=== PATIENT | female | born 1980 | race Caucasian/White ===

== ENCOUNTER 2016-10-15 18:33 | Emergency (ER) | payer OTHER ==
--- NOTE | 2016-10-15 19:51 | ER Document Report ---
HPI - HPI Patient complains to provider of: left breast pain Onset: Last week Onset/Duration: Persistent Quality of pain: Achy Pain Level: 3 Context: Patient complains of tenderness to left breast and palpable lumps to left breast. Patient denies any fever. Patient reports a family history of breast cancer to her aunt on her mother's side. Associated Symptoms: Other - Left breast tenderness with lumps Similar symptoms previously: No Recently seen / treated by doctor: No - ROS ROS below otherwise negative: Yes Systems Reviewed and Negative: Yes All other systems reviewed and negative - CONSTITUTIONAL Constitutional: DENIES: Fever, Chills - CARDIOVASCULAR Cardiovascular: REPORTS: Chest pain - Left breast tenderness - RESPIRATORY Respiratory: DENIES: Coughing - REPRODUCTIVE Reproductive: DENIES: : - DERM Skin Color: Normal, [place] Skin Problems: None Past Medical History - General Information source: Patient - Social History Smoking Status: Never Smoker Frequency of alcohol use: None Drug Abuse: None Occupation: chemist food Family History: Reviewed & Not Pertinent - Medical History Medical History: Negative Pulmonary Medical History: Reports: Hx Asthma Neurological Medical History: Reports: Hx Migraine Renal/ Medical History: Denies: Hx Peritoneal Dialysis Past Surgical History: Reports: Hx Tubal Ligation - Immunizations Immunizations up to date: Yes Hx Diphtheria, Pertussis, Tetanus Vaccination: Yes - <5 years Vertical Provider Document - CONSTITUTIONAL Agree With Documented VS: Yes Exam Limitations: No Limitations General Appearance: WD/WN, No Apparent Distress - INFECTION CONTROL TRAVEL OUTSIDE OF THE [place] IN LAST 30 DAYS: No - HEENT HEENT: Atraumatic, Normocephalic - NECK Neck: Normal Inspection, Supple - RESPIRATORY Respiratory: Breath Sounds Normal, No Respiratory Distress. negative: Chest Non -Tender - Left breast tenderness under her left periorbital edema extending out about 3 cm in all directions Notes: Patient with fibrocystic breast tissue to left breast, multiple palpable nodules to left breast, normal skin color, temperature and contour to left breast. No nipple inversion or drainage - CARDIOVASCULAR Cardiovascular: Regular Rate, Regular Rhythm, No Murmur - MUSCULOSKELETAL/EXTREMETIES Musculoskeletal/Extremeties: MAEW, FROM - NEURO Level of Consciousness: Awake, Alert, Appropriate Motor/Sensory: No Motor Deficit - DERM Integumentary: Warm, Dry, No Rash Discharge - Discharge Clinical Impression: Breast lump in female Condition: Stable Disposition: HOME, SELF-CARE Instructions: Breast Lumps ([facility]), Anti-Inflammatory Medication ([facility]), Family Physicians / Practices Additional Instructions: Return immediately for any new or worsening symptoms Followup with your primary care provider, call tomorrow to make a followup appointment Avoid caffeinated beverages You need to get established with a primary doctor and have an outpatient mammogram to further evaluate breast lumps, call tomorrow to get established with a primary doctor. Prescriptions: Naproxen [Naprosyn 250 Nmg Tablet] 1 tab PO BID #14 tablet Forms: Return to Work
[2016-10-15 20:22] VITALS: BP 120/78
== END 2016-10-15 20:10 | disposition home or self-care (01) ==
LOC: ER 18:33
DX: N63 Unspecified lump in breast (principal); N64.4 Mastodynia; Z98.51 Tubal ligation status
CPT/HCPCS: 99283

== ENCOUNTER 2017-05-16 20:17 | Emergency (ER) | payer OTHER ==
--- NOTE | 2017-05-16 21:24 | ER Document Report ---
ED General - General Chief Complaint: Flu Symptoms Stated Complaint: FLU SYMPTOMS Time Seen by Provider: 05/16/17 21:23 Mode of Arrival: Ambulatory Information source: Patient Notes: 34-year-old with head congestion, postnasal drip, lightheadedness today intermittently, mild cough for a week. She was prescribed amoxicillin which she did not take today because she vomited twice. She has been in bed most of the day. No fever. No chest pain or shortness of breath. No abdominal pain. No dysuria. TRAVEL OUTSIDE OF THE [place] IN LAST 30 DAYS: No - Related Data Allergies/Adverse Reactions: No Known Drug Allergies Allergy (Verified 04/07/13 11:44) Past Medical History - General Information source: Patient - Social History Smoking Status: Never Smoker Frequency of alcohol use: None Drug Abuse: None Lives with: Spouse/Significant other Family History: Reviewed & Not Pertinent Patient has suicidal ideation: No Patient has homicidal ideation: No Pulmonary Medical History: Reports: Hx Asthma Neurological Medical History: Reports: Hx Migraine Renal/ Medical History: Denies: Hx Peritoneal Dialysis Past Surgical History: Reports: Hx Tubal Ligation - Immunizations Immunizations up to date: Yes Hx Diphtheria, Pertussis, Tetanus Vaccination: Yes - <5 years Review of Systems - Review of Systems Constitutional: See HPI EENT: See HPI Cardiovascular: No symptoms reported Respiratory: See HPI Gastrointestinal: No symptoms reported Genitourinary: No symptoms reported Female Genitourinary: No symptoms reported Musculoskeletal: No symptoms reported Skin: No symptoms reported Hematologic/Lymphatic: No symptoms reported Neurological/Psychological: No symptoms reported Physical Exam - Vital signs Vitals: Temp Pulse Resp BP Pulse Ox 98.3 F 91 16 112/69 100 05/16/17 20:31 05/16/17 20:31 05/16/17 20:31 05/16/17 20:31 05/16/17 20:31 Interpretation: Normal - General General appearance: Appears well, Alert In distress: None - HEENT Head: Normocephalic, Atraumatic Eyes: Normal Conjunctiva: Normal Pupils: PERRL Tympanic membrane: Normal Nasal: Swelling Mucous membranes: Normal Pharynx: Normal Neck: Supple. No: Lymphadenopathy - Respiratory Respiratory status: No respiratory distress Chest status: Nontender Breath sounds: Normal Chest palpation: Normal - Cardiovascular Rhythm: Regular Heart sounds: Normal auscultation Murmur: No - Abdominal Inspection: Normal Distension: No distension Bowel sounds: Normal Tenderness: Nontender. No: Tender Organomegaly: No organomegaly - Back Back: Normal, Nontender. No: CVA tenderness - Extremities General upper extremity: Normal inspection, Nontender, Normal color, Normal ROM , Normal temperature General lower extremity: Normal inspection, Nontender, Normal color, Normal ROM , Normal temperature, Normal weight bearing. No: Eileen's sign - Neurological Neuro grossly intact: Yes Cognition: Normal Orientation: AAOx4 [place] Coma Scale Eye Opening: Spontaneous [place] Coma Scale Verbal: Oriented [place] Coma Scale Motor: Obeys Commands [place] Coma Scale Total: 15 Speech: Normal Motor strength normal: LUE, RUE, LLE, RLE Sensory: Normal - Psychological Associated symptoms: Normal affect, Normal mood - Skin Skin Temperature: Warm Skin Moisture: Dry Skin Color: Normal Skin irregularity: negative: Rash Course - Re-evaluation Re-evalutation: 05/16/17 22:18 cough worse at night, post nasal drip. - Vital Signs Vital signs: Temp Pulse Resp BP Pulse Ox 98.4 F 84 18 111/64 97 05/16/17 21:53 05/16/17 21:53 05/16/17 21:53 05/16/17 21:53 05/16/17 21:53 Discharge - Discharge Clinical Impression: Sinusitis Qualifiers: Sinusitis location: unspecified location Chronicity: acute Recurrence: non- recurrent Qualified Code(s): J01.90 - Acute sinusitis, unspecified Condition: Good Disposition: HOME, SELF-CARE Instructions: Acetaminophen Additional Instructions: Take her amoxicillin that sure medical provider prescribed Saline nasal spray 4 times a day Coolmist humidifier Heat to your sinuses Return to the emergency room any concerns Zofran for nausea Please complete the patient satisfaction survey if you get one, and return it.. If you do not receive a survey, then you can go to the [facility] website, [email or web address] and place your comments about your very good care. Thank you very much. It was a pleasure being your medical provider today. Prescriptions: Benzonatate [Tessalon Perles 100 mg Capsule] 100 mg PO ASDIR PRN #40 capsule PRN Reason: Forms: Return to Work
[2017-05-16] MEDS ORDERED: ONDANSETRON 4 MG TAB.RAPDIS PO ONE (21:41)
[2017-05-16 21:56] VITALS: BP 111/64
[2017-05-16] MEDS ORDERED: ONDANSETRON ODT 4 MG TAB (6 TAB/DSPK) PO PRN (22:03)
== END 2017-05-16 22:20 | disposition home or self-care (01) ==
LOC: ER 20:17
DX: J01.90 Acute sinusitis, unspecified (principal); R09.82 Postnasal drip; R42 Dizziness and giddiness; R05 Cough; R11.10 Vomiting, unspecified; J45.909 Unspecified asthma, uncomplicated
CPT/HCPCS: 99283; S0119

== ENCOUNTER 2019-05-08 14:51 | Emergency (ER) | payer OTHER ==
[2019-05-08 14:57] VITALS: BP 142/83
--- NOTE | 2019-05-08 15:18 | ER Document Report ---
HPI - HPI Time Seen by Provider: 05/08/19 15:07 Pain Level: 3 Context: Patient is a 38-year-old female who presents emergency department with a chief complaint of sinus congestion and fatigue. Patient reports that she has had symptoms for about 10 days. Patient reports that she does have a history of seasonal allergies but that this is different. Patient denies cough or runny nose. Patient reports a thick sinus congestion and pressure to the right maxillary sinus. Patient denies fever. Patient does report chills and fatigue. Patient reports body aches. - REPRODUCTIVE Reproductive: DENIES: : Past Medical History - General Information source: Patient - Social History Smoking Status: Never Smoker Chew tobacco use (# tins/day): No Frequency of alcohol use: None Drug Abuse: None Lives with: Family Family History: Reviewed & Not Pertinent Patient has suicidal ideation: No Patient has homicidal ideation: No - Past Medical History Cardiac Medical History: Reports: None Pulmonary Medical History: Reports: Hx Asthma EENT Medical History: Reports: None Neurological Medical History: Reports: Hx Migraine Endocrine Medical History: Reports: None Renal/ Medical History: Reports: None. Denies: Hx Peritoneal Dialysis Malignancy Medical History: Reports: None Musculoskeletal Medical History: Reports None Skin Medical History: Reports None Psychiatric Medical History: Reports: None Traumatic Medical History: Reports: None Infectious Medical History: Reports: None Past Surgical History: Reports: Hx Tubal Ligation - Immunizations Immunizations up to date: Yes Hx Diphtheria, Pertussis, Tetanus Vaccination: Yes - <5 years Vertical Provider Document - CONSTITUTIONAL Agree With Documented VS: Yes Exam Limitations: No Limitations General Appearance: No Apparent Distress - INFECTION CONTROL TRAVEL OUTSIDE OF THE [place] IN LAST 30 DAYS: No - HEENT HEENT: Atraumatic, Normal ENT Exam, Normocephalic, PERRLA Notes: Patient does have right maxillary sinus tenderness with palpation. There is no rhinorrhea. TMs pearly taylor bilaterally without erythema or bulging. No tragus or mastoid tenderness with palpation bilaterally. - NECK Neck: Normal Inspection Notes: No cervical lymphadenopathy. - RESPIRATORY Respiratory: Breath Sounds Normal, No Respiratory Distress - CARDIOVASCULAR Cardiovascular: Regular Rate, Regular Rhythm - GI/ABDOMEN Gastrointestinal: Abdomen Soft, Abdomen Non-Tender, Normal Bowel Sounds - MUSCULOSKELETAL/EXTREMETIES Musculoskeletal/Extremeties: FROM, Non-Tender - NEURO Level of Consciousness: Awake, Alert, Appropriate - DERM Integumentary: Warm, Dry, No Rash Course - Re-evaluation Re-evalutation: 05/08/19 15:59 Patient flu test was negative. We will treat the patient for sinusitis as the patient has been symptomatic for over 10 days. - Vital Signs Vital signs: Temp Pulse Resp BP Pulse Ox 98.2 F 87 16 142/83 H 99 05/08/19 15:01 05/08/19 14:54 05/08/19 15:01 05/08/19 14:54 05/08/19 15:01 - Laboratory Laboratory results interpreted by me: 05/08/19 15:53 Laboratory 05/08/19 15:16 Influenza A (Rapid) NEGATIVE Influenza B (Rapid) NEGATIVE Discharge - Discharge Clinical Impression: Sinus pressure Sinusitis Qualifiers: Sinusitis location: maxillary Chronicity: acute Recurrence: not specified as recurrent Qualified Code(s): J01.00 - Acute maxillary sinusitis, unspecified Condition: Stable Disposition: HOME, SELF-CARE Additional Instructions: *Today you are seen in the emergency department for sinus pressure. Due to the duration of your symptoms I will go ahead and prescribe you an antibiotic. Please take this as prescribed for the next week. Please continue use Tylenol and ibuprofen as needed for pain. You can use nasal saline flushes to help remove the congestion and debris from the sinus cavity. Sinusitis You have sinusitis, an infection of the sinus cavities of the face. The sinuses are air-filled chambers which open into the inside of the nose. Bacter ia and pus fill a sinus, causing pain, drainage, and fever. Sinusitis is treated with antibiotics. Often, expectorants (to thin the sinus mucous) or decongestants (to reduce swelling) are prescribed as well. Healing requires seven to 10 days. Avoid chemical fumes, pollens, dusts, and smoke (especially cigarette smoke). Keep the air humidified in your bedroom and work area and take plenty of liquids by mouth. This condition can be serious if the infection spreads. If your symptoms worsen, or if you develop severe headache, high fever, stiff neck, or a rash, you must call the doctor or return for re-evaluation. Prescriptions: Amox Tr/Potassium Clavulanate [Augmentin 875-125 Tablet] 1 tab PO BID 7 Days #13 tablet Forms: Return to Work
[2019-05-08 15:51] LABS: A TYPE INFLUENZA AG NEGATIVE (NEGATIVE); B INFLUENZA AG NEGATIVE (NEGATIVE)
[2019-05-08] MEDS ORDERED: AMOXICILLIN TR/POT CLAVULANATE 500-125 MG TAB PO ONE (15:54)
== END 2019-05-08 16:06 | disposition home or self-care (01) ==
LOC: ER 14:51
DX: J01.00 Acute maxillary sinusitis, unspecified (principal); R09.81 Nasal congestion; R53.83 Other fatigue
CPT/HCPCS: 87804; 99283

== ENCOUNTER 2019-06-02 16:01 | Emergency (ER) | payer OTHER ==
--- NOTE | 2019-06-02 16:33 | ER Document Report ---
HPI - HPI Time Seen by Provider: 06/02/19 16:25 Pain Level: 5 Notes: Patient is a 38-year-old female no significant past medical history presents complaining of left thumb pain status post fall a week ago. Patient states that she does have pain with movement. She is not noticed any bruising or swelling otherwise. Denies drug allergies. Pain does not radiate. No other concerns or complaints. Denies any headache, fever, head injury, neck pain, URI, sore throat, chest pain, palpitations, syncope, cough, shortness of breath, wheeze, dyspnea, abdominal pain, nausea/vomiting/diarrhea, urinary retention, dysuria, hematuria, loss of control of bowel or bladder, numbness/tingling, saddle anesthesia, muscle paralysis/weakness, or rash. - ROS Systems Reviewed and Negative: Yes All other systems reviewed and negative - REPRODUCTIVE Reproductive: DENIES: : - MUSCULOSKELETAL Musculoskeletal: REPORTS: Extremity pain - left thumb Past Medical History - Social History Smoking Status: Never Smoker Chew tobacco use (# tins/day): No Frequency of alcohol use: None Drug Abuse: None Family History: Reviewed & Not Pertinent Patient has suicidal ideation: No Patient has homicidal ideation: No Pulmonary Medical History: Reports: Hx Asthma Neurological Medical History: Reports: Hx Migraine Renal/ Medical History: Denies: Hx Peritoneal Dialysis Past Surgical History: Reports: Hx Tubal Ligation - Immunizations Immunizations up to date: Yes Hx Diphtheria, Pertussis, Tetanus Vaccination: Yes - <5 years Vertical Provider Document - CONSTITUTIONAL Agree With Documented VS: Yes Notes: PHYSICAL EXAMINATION: GENERAL: Well-appearing, well-nourished and in no acute distress. HEAD: Atraumatic, normocephalic. NECK: Normal range of motion, supple without lymphadenopathy. No midline tenderness. LUNGS: Breath sounds clear to auscultation bilaterally and equal. No wheezes rales or rhonchi. HEART: Regular rate and rhythm without murmurs, rubs, gallops. Musculoskeletal: Lt hand/wrist: No erythema, warmth, ecchymosis, deformity, or swelling noted. N/V intact distal. FROM to passive/active at the wrist/fingers. Strength 4+/5 to clinical laboratory assistant. No scaphoid tenderness. Tinel/phalen neg. No other bony tenderness. Gamekeeper negative. + tenderness to the prox thumb. Extremities: No cyanosis, clubbing, or edema b/l. Peripheral pulses 2+. Capillary refill less than 3 seconds. NEUROLOGICAL: Normal speech, normal gait. Normal sensory, motor exams otherwise unremarkable PSYCH: Normal mood, normal affect. SKIN: see above. No rash - INFECTION CONTROL TRAVEL OUTSIDE OF THE [place] IN LAST 30 DAYS: No Course - Re-evaluation Re-evalutation: 06/02/19 Patient is an afebrile, well-hydrated, 38-year-old female who presents to the ED with left thumb pain which I suspect to be a sprain versus strain. Vitals are acceptable without any significant tachycardia, tachypnea, or hypoxia. PE is otherwise unremarkable for any neurovascular compromise, obvious tendon/ligament rupture, obvious fracture/dislocation, septic joint. X-ray was unremarkable for any acute pathology. Thumb spica provided today. Patient declined any Tylenol or ice. Patient is nontoxic-appearing. No other labs or imaging warranted at this time based on H&P. Conservative measures otherwise for symptoms. Recheck with your PCM in 3-5 days. Schedule consult with orthopedics. Return to the ED with any worsening/concerning symptoms otherwise as reviewed in discharge. Patient is in agreement. - Vital Signs Vital signs: Temp Pulse Resp BP Pulse Ox 98.2 F 72 19 140/81 H 97 06/02/19 16:10 06/02/19 16:10 06/02/19 16:10 06/02/19 16:10 06/02/19 16:10 Discharge - Discharge Clinical Impression: Pain of left thumb Condition: Stable Disposition: HOME, SELF-CARE Additional Instructions: Rest, Ice, Compression, Elevation Tylenol/ibuprofen as needed Light stretches daily Strength exercises as able Moist heat and massage may help F/u with your PCP in 3-5 days for a recheck Schedule an appointment with orthopedics for further evaluation and management Return to the ED with any worsening symptoms and/or development of fever, headache, chest pain, palpitations, syncope, shortness of breath, trouble breathing, abdominal pain, n/v/d, muscle weakness/paralysis, numbness/tingling, swelling, redness, or other worsening symptoms that are concerning to you. Forms: Elevated Blood Pressure Referrals: WINDY HINES MD [NO LOCAL MD] - Follow up in 1 week
--- NOTE | 2019-06-02 17:06 | RADIOLOGY REPORT (SQ) ---
EXAM DESCRIPTION: HAND LEFT 3 VIEWS COMPLETED DATE/TIME: 06/02/2019 4:53 pm REASON FOR STUDY: left thumb pain s/p injury COMPARISON: None. EXAM PARAMETERS: NUMBER OF VIEWS: Three views. TECHNIQUE: AP, lateral and oblique radiographic images acquired of the left hand. LIMITATIONS: None. FINDINGS: MINERALIZATION: Normal. BONES: No acute fracture or dislocation. No worrisome bone lesions. JOINTS: No effusions. SOFT TISSUES: No soft tissue swelling. No foreign body. OTHER: No other significant finding. IMPRESSION: NEGATIVE STUDY OF THE LEFT HAND. NO RADIOGRAPHIC EVIDENCE OF ACUTE INJURY. TECHNICAL DOCUMENTATION: JOB ID: [id number] [employer] [place]- All Rights Reserved Reading location - IP/workstation name: [email or web address]
[2019-06-02 17:39] VITALS: BP 127/83
== END 2019-06-02 17:27 | disposition home or self-care (01) ==
LOC: ER 16:01
PROC: 2W3HX1Z Immobilization of Left Thumb using Splint (ICD-10-PCS; principal; 2019-06-02)
DX: M79.645 Pain in left finger(s) (principal); W19.XXXA Unspecified fall, initial encounter; J45.909 Unspecified asthma, uncomplicated
CPT/HCPCS: 99283

== ENCOUNTER → 2019-06-09 | Outpatient (CLI) | payer OTHER | LOC: RAD 17:40 | PROVIDERS: ATTEND Physician Assistant | DX: M79.642 Pain in left hand (principal) ==

== ENCOUNTER 2020-04-20 14:04 | Emergency (ER) | payer SELFPAY ==
[2020-04-20 14:16] VITALS: BP 127/80
--- NOTE | 2020-04-20 15:14 | ER Document Report ---
ED Oral Problem - General Chief Complaint: Jaw Pain Stated Complaint: JAW PAIN Time Seen by Provider: 04/20/20 15:04 Primary Care Provider: AMY GIFFORD PA-C [Primary Care Provider] - Follow up as needed RUSH GARCIA MD [ACTIVE STAFF] - Follow up as needed Mode of Arrival: Ambulatory Information source: Patient Notes: 39-year-old female presents to ED for complaint of pain to the right jaw. There is no signs of infection in her ear or her jaw on the right side. The right nare does have minimal drainage but is not anything that would be causing her pain on the right jaw. We have discussed a very bland stones. And that she is to suck on lemon drops is sour if she can get to get rid of the pain. If she continues to have the enlarged lymph node she needs to follow-up with a surgeon for biopsy if it continues more than a month. So give the patient the name and number for ENT if this continues we have discussed the use of lemon drops for the pain at this time and patient states she will try this or return for any further testing. She is also knows that she can follow-up with ENT if she continues to have this pain. Constitutional: Negative for fever. HENT: Patient states she has some tenderness to the right lower jaw and behind the jaw and the ear. There is no redness no swelling no heat. There is a small lymphadenopathy to the posterior right jaw. There is no signs or symptoms of ear infection. There is no redness no inflammation no serous drainage. There is no tenderness behind the ear. We have discussed use of sour drops to release the pain. She will follow up with ENT if she continues to have some ear pain. Also follow-up concerning the lymphadenopathy just below the right jawline Eyes: Negative for visual changes. Cardiovascular: Negative for chest pain. Respiratory: Negative for shortness of breath. Gastrointestinal: Negative for abdominal pain, vomiting or diarrhea. Genitourinary: Negative for dysuria. Musculoskeletal: Negative for back pain. Skin: Negative for rash. Neurological: Negative for headaches, weakness or numbness. 10 point ROS negative except as marked above and in HPI. PHYSICAL EXAMINATION: GENERAL: Well-appearing, well-nourished and in no acute distress. HEAD: Atraumatic, normocephalic. EYES: Pupils equal round extraocular movements intact, conjunctiva are normal. ENT: Nares patent NECK: Normal range of motion LUNGS: No respiratory distress Musculoskeletal: Normal range of motion NEUROLOGICAL: Normal speech, normal gait. PSYCH: Normal mood, normal affect. SKIN: Warm, Dry, normal turgor, no rashes or lesions noted. TRAVEL OUTSIDE OF THE [place] IN LAST 30 DAYS: No - HPI Patient complains to provider of: Jaw pain. No: Swelling of face, Swelling of jaw Onset: Yesterday Onset: Gradual Quality of pain: Achy Severity: Moderate Pain Level: 4 Associated symptoms: Jaw pain Worsened by: Nothing Relieved by: Nothing Similar symptoms previously: Yes Recently seen / treated by doctor/dentist: No - Related Data Allergies/Adverse Reactions: No Known Drug Allergies Allergy (Verified 04/20/20 15:00) Past Medical History - General Information source: Patient - Social History Smoking Status: Never Smoker Frequency of alcohol use: None Drug Abuse: None Lives with: Family Family History: Reviewed & Not Pertinent Patient has suicidal ideation: No - Past Medical History Cardiac Medical History: Reports: None Pulmonary Medical History: Reports: Hx Asthma EENT Medical History: Reports: None Neurological Medical History: Reports: Hx Migraine Endocrine Medical History: Reports: None Renal/ Medical History: Reports: None Malignancy Medical History: Reports: None GI Medical History: Reports: None Musculoskeletal Medical History: Reports None Skin Medical History: Reports None Psychiatric Medical History: Reports: None Traumatic Medical History: Reports: None Infectious Medical History: Reports: None Past Surgical History: Reports: Hx Tubal Ligation - Immunizations Immunizations up to date: Yes Hx Diphtheria, Pertussis, Tetanus Vaccination: Yes - <5 years Physical Exam - Vital signs Vitals: Temp Pulse Resp BP Pulse Ox 98.0 F 89 20 127/80 H 98 04/20/20 14:16 04/20/20 14:16 04/20/20 14:16 04/20/20 14:16 04/20/20 14:16 Course - Vital Signs Vital signs: Temp Pulse Resp BP Pulse Ox 98.0 F 89 20 127/80 H 98 04/20/20 14:16 04/20/20 14:16 04/20/20 14:16 04/20/20 14:16 04/20/20 14:16 Discharge - Discharge Clinical Impression: Salivary duct stone, Lymphadenopathy right cervical chain Condition: Stable Disposition: HOME, SELF-CARE Additional Instructions: You are diagnosed today with salivary stones. These are stone stuck in the salivary gland. Sucking on very sour lemon drops usually clear these up. If you continue to have problems you need to follow-up with the ENT as we discussed or return to the ED. You also have some lymphadenopathy which means she has some swollen lymph nodes in the below the jaw. These usually go away by themselves they are the bodies protection from infection to the top of your head. Lymphadenopathy You have enlargement of lymph glands, called lymphadenopathy. Lymph glands filter tissue fluids. They help to fight infection. Most of the time, enlarged lymph glands are not serious. Lymph glands may react to a viral or bacterial infection by becoming swollen and painful. When the infection goes away, the glands shrink. Sometimes a lymph gland will remain enlarged for a long time after an infection. Occasionally, a lymph gland may be overwhelmed by infection and form an abscess. If an enlarged lymph gland has signs that are suspicious for tumor, the doctor will recommend a biopsy. A suspicious gland usually is NOT painful, grows very slowly, and is rock-hard to touch. See the doctor or return if there is increasing swelling and redness, high fever, difficulty breathing, or any other change for the worse. Acetaminophen Acetaminophen may be taken for pain relief or fever control. It's much safer than aspirin, offering a wider range of "safe" dosages. It is safe during . Some brand names are Tylenol, Panadol, Datril, Anacin 3, Tempra, and Liquiprin. Acetaminophen can be repeated every four hours. The following are maximum recommended dosages: WEIGHT Dose Drops Elixir Chewable(80mg) (LBS.) drprs=droppers tsp=teaspoon 6 40 mg .4 ml (1/2) 6-11 80 mg .8 ml (full) 1/2 tsp 1 tab 12-16 120 mg 1 1/2 drprs 3/4 tsp 1 1/2 tabs 17-23 160 mg 2 drprs 1 tsp 2 tabs 24-30 240 mg 3 drprs 1 1/2 tsp 3 tabs 30-35 320 mg 2 tsp 4 tabs 36-41 360 mg 2 1/4 tsp 4 1/2 tabs 42-47 400 mg 2 1/2 tsp 5 tabs 48-53 480 mg 3 tsp 6 tabs 54-59 520 mg 3 1/4 tsp 6 1/2 tabs 60-64 560 mg 3 1/2 tsp 7 tabs 65-70 600 mg 3 3/4 tsp 7 1/2 tabs 71-76 640 mg 4 tsp 8 tabs 77-82 720 mg 4 1/2 tsp 9 tabs 83-88 800 mg 5 tsp 10 tabs >89 pounds or adults 650 mg to 900 mg Acetaminophen can be repeated every four hours. Maximum daily dose not to exceed 4000 mg. These maximum recommended dosages are slightly higher than the dosages written on the product container, but these dosages are very safe and well below the toxic dosage for acetaminophen. Ibuprofen Ibuprofen is an excellent, safe drug for pain control. In addition, it has potent antiinflammatory effects which are beneficial, especially in the treatment of injuries, arthritis, or tendonitis. It's best to take ibuprofen with food. Persons with ulcer disease or allergy to aspirin should notify their physician of this before taking ibuprofen. Take the medication exactly as prescribed. Don't take additional doses unless instructed to do so by your doctor. If you develop wheezing, shortness of breath, hives, faintness, stomach pain, vomiting, or dark black stools, return for re-evaluation at once. Warm Packs After approximately two days, apply gentle heat (such as a heating pad or h ot water bottle) for about 20 to 30 minutes about every two hours -- at least four times daily. Warmth and elevation will help you make a more rapid recovery, and will ease the pain considerably. Do not use HOT heat, and never apply heat for longer than 30 minutes. The continuous heat can invisibly damage skin and muscles -- even when no burn is seen on the surface. Damaged muscles can make you MORE sore. FOLLOW-UP CARE: If you have been referred to a physician for follow-up care, call the physicians office for an appointment as you were instructed or within the next two days. If you experience worsening or a significant change in your symptoms, notify the physician immediately or return to the Emergency Department at any time for re-evaluation. Referrals: AMY GIFFORD PA-C [Primary Care Provider] - Follow up as needed RUSH GARCIA MD [ACTIVE STAFF] - Follow up as needed
== END 2020-04-20 15:25 | disposition home or self-care (01) ==
LOC: ER 14:04
DX: K11.5 Sialolithiasis (principal); R59.0 Localized enlarged lymph nodes; R68.84 Jaw pain
CPT/HCPCS: 99282

== ENCOUNTER 2020-05-31 21:25 | Emergency (ER) | payer BC ==
[2020-05-31 23:50] VITALS: BP 139/84
--- NOTE | 2020-05-31 23:55 | ER Document Report ---
HPI - HPI Patient complains to provider of: Cough Time Seen by Provider: 05/31/20 23:44 Pain Level: Denies Context: 39-year-old female past medical history significant for asthma and allergies presents to the emergency room stating that she was diagnosed earlier today with Covid has had a cough, runny nose, and general body aches for the past 2 days. States she had used her nebulizer today was cleaning it when she lost the piece from it and now needs the replacement parts. States has been using her inhaler and nebulizers with some relief. She denies any fevers. She denies any shortness of breath, no difficulty breathing. Was exposed to a positive coworker a week ago. Associated Symptoms: None Exacerbated by: Denies Relieved by: Denies Similar symptoms previously: Yes - History of asthma Recently seen / treated by doctor: No - ROS Systems Reviewed and Negative: Yes All other systems reviewed and negative - CONSTITUTIONAL Constitutional: DENIES: Fever - EENT EENT: REPORTS: Nasal Drainage-Clear, Congestion. DENIES: Sore Throat - NEURO Neurology: DENIES: Headache - CARDIOVASCULAR Cardiovascular: DENIES: Chest pain - RESPIRATORY Respiratory: REPORTS: Coughing. DENIES: Trouble Breathing - REPRODUCTIVE Reproductive: DENIES: : - DERM Skin Color: Normal Skin Problems: None Past Medical History - General Information source: Patient - Social History Smoking Status: Former Smoker Frequency of alcohol use: None Drug Abuse: None Family History: Reviewed & Not Pertinent Pulmonary Medical History: Reports: Hx Asthma Neurological Medical History: Reports: Hx Migraine Renal/ Medical History: Denies: Hx Peritoneal Dialysis Past Surgical History: Reports: Hx Tubal Ligation - Immunizations Immunizations up to date: Yes Hx Diphtheria, Pertussis, Tetanus Vaccination: Yes - <5 years Vertical Provider Document - CONSTITUTIONAL Agree With Documented VS: Yes Exam Limitations: No Limitations Notes: GENERAL: Mild acute distress, non-toxic appearance. HEAD: Normal with no signs of head trauma. EYES: PERRLA, EOMI, conjunctiva normal, no discharge. EARS: Hearing grossly intact. NOSE: Normal. THROAT: Oropharynx is normal. NECK: Normal range of motion, no tenderness, supple, no lymphadenopathy, No adenopathy, no JVD. CHEST: Clear breath sounds bilaterally. No wheezes, rales, or rhonchi. CARDIAC: Regular rate and rhythm. S1 and S2, without murmurs, gallops, or rubs. VASCULAR: No Edema. Peripheral pulses normal and equal in all extremities. ABDOMEN: Normal and soft with no tenderness, no masses or pulsatile masses. No organomegaly. Positive bowel sounds x4. No CVA tenderness noted bilaterally. GASTROINTESTINAL: Bowel sounds normal LYMPATHTIC: No lymphadenopathy noted. MUSCULOSKELETAL: Good range of motion of all major joints. Extremities without clubbing, cyanosis or edema. NEUROLOGICAL: Alert and oriented x 3. No focal sensory or strength deficits. Speech normal. Follows commands appropriately. PSYCHIATRIC: Normal Affect, judgement and mood. SKIN: Normal appearance with no rashes or lesions. - INFECTION CONTROL TRAVEL OUTSIDE OF THE [place] IN LAST 30 DAYS: No Course - Re-evaluation Re-evalutation: 05/31/20 23:52 Patient is in no acute distress. No wheezing. Is requesting steroids. Will start on prednisone taper. Patient was given the part that she needs for her nebulizer. She is aware of the need to self quarantine for 14 days. Patient was given strict return to the emergency room guidelines. Return for any new or worsening symptoms. All questions were answered. Patient verbalized understanding and agrees with plan of care. - Vital Signs Vital signs: Temp Pulse Resp BP Pulse Ox 98.4 F 93 18 139/84 H 99 05/31/20 23:47 05/31/20 23:47 05/31/20 23:47 05/31/20 23:47 05/31/20 23:47 - Laboratory Results Critical Laboratory Results Reviewed: No Critical Results - Radiology Results Critical Radiology Results Reviewed: No Critical Results Discharge - Discharge Clinical Impression: COVID-19 Asthma Qualifiers: Asthma severity: mild Asthma persistence: intermittent Asthma complication type: uncomplicated Qualified Code(s): J45.20 - Mild intermittent asthma, uncomplicated Condition: Stable Disposition: HOME, SELF-CARE Instructions: COVID-19 Guidance for Persons Under Investigation, Asthma ([facility]) Additional Instructions: You need to self quarantine for 14 days. Continue with use of nebulizer and inhalers as directed. Steroids as prescribed. Follow-up with a primary care physician if not improving in 2 to 3 days. Return to the emergency room for any new or worsening symptoms. Prescriptions: Prednisone [Deltasone 20 mg Tablet] See Protocol PO DAILY 9 Days #18 tablet Referrals: AMY GIFFORD PA-C [Primary Care Provider] - Follow up as needed
== END 2020-06-01 00:30 | disposition home or self-care (01) ==
LOC: ER 06-01 00:11
DX: U07.1 COVID-19 (principal); J45.20 Mild intermittent asthma, uncomplicated; R05 Cough; R09.89 Other specified symptoms and signs involving the circulatory and respiratory systems; Z79.899 Other long term (current) drug therapy; Z87.891 Personal history of nicotine dependence
CPT/HCPCS: 99283